=== PATIENT | female | born 1980 | race Caucasian/White ===

== ENCOUNTER → 2016-12-31 | Outpatient (REF) | payer OTHER | LOC: M LAB REF 12:31 | PROVIDERS: ATTEND Physician Assistant Medical | DX: J02.9 Acute pharyngitis, unspecified (principal) ==

== ENCOUNTER → 2017-03-09 | Outpatient (CLI) | payer OTHER ==
[2017-03-09 19:56] LABS: FOLATE 4.8 NG/ML; VITAMIN B12 LEVEL 418 PG/ML
[2017-03-09 19:59] LABS: DIFF SLIDE NUMBER 275; MEAN CORPUSCULAR HEMOGLOBIN 29.9 pg (27.0-33.0); MEAN CORPUSCULAR HGB CONC 31.9 g/dl (32.0-36.5); MEAN CORPUSCULAR VOLUME 93.7 fl (80.0-96.0); PLATELET COUNT, AUTOMATED 208 k/mm3 (150-450); RED CELL DISTRIBUTION WIDTH 12.2 % (11.5-14.5); WHITE BLOOD COUNT 11.3 K/mm3 (4.0-10.0)
[2017-03-09 20:22] LABS: ALBUMIN 3.3 GM/DL (3.2-5.2); ALBUMIN/GLOBULIN RATIO 0.83 (1.00-1.93); ALKALINE PHOSPHATASE 51 U/L (45-117); ALT/SGPT 72 U/L (12-78); ANION GAP 5 MEQ/L (8-16); AST/SGOT 64 U/L (15-37); BILIRUBIN,TOTAL 0.4 MG/DL (0.2-1.0); BLOOD UREA NITROGEN 11 MG/DL (7-18); CALCIUM LEVEL 8.4 MG/DL (8.5-10.1); CARBON DIOXIDE LEVEL 25 MEQ/L (21-32); CHLORIDE LEVEL 108 MEQ/L (98-107); CHOLESTEROL LEVEL 188 MG/DL (<200); CREATININE FOR GFR 0.86 MG/DL (0.55-1.02); GLOMERULAR FILTRATION RATE > 60.0 (>60); GLUCOSE, FASTING 81 MG/DL (70-105); POTASSIUM SERUM 4.5 MEQ/L (3.5-5.1); SODIUM LEVEL 138 MEQ/L (136-145); TOTAL PROTEIN 7.3 GM/DL (6.4-8.2); TRIGLYCERIDES LEVEL 131 MG/DL (<150)
[2017-03-09 20:48] LABS: BASOPHILS 2 % (0-4); EOSINOPHILS 1 % (0-5)
[2017-03-09 20:50] LABS: CRENATED RBC 2+
[2017-03-10 09:06] LABS: CONTROL LINE MONO INT CTR LINE PRESENT
== END ==
LOC: M ADAMS 12:00
PROVIDERS: ATTEND Emergency Medicine
DX: R53.83 Other fatigue (principal); J30.9 Allergic rhinitis, unspecified

== ENCOUNTER → 2017-03-09 | Outpatient (REF) | payer OTHER | LOC: M LAB REF 18:53 | PROVIDERS: ATTEND Physician Assistant | DX: J02.9 Acute pharyngitis, unspecified (principal) ==

== ENCOUNTER → 2017-08-18 | Outpatient (REF) | payer OTHER | LOC: M LAB REF 18:30 | PROVIDERS: ATTEND Physician Assistant Medical | DX: J02.9 Acute pharyngitis, unspecified (principal) ==

== ENCOUNTER → 2019-11-16 | Outpatient (CLI) | payer OTHER ==
--- NOTE | 2019-11-16 20:06 | REP ---
Right foot series: Four views. History: Pain in the right foot. Findings: Four views of the right foot demonstrate mild Achilles calcaneal spurring. Overall mineralization pattern is normal. No acute bony abnormality is seen. No erosive changes seen. Impression: Mild Achilles calcaneal spurring. No acute bony abnormality. Electronically Signed by Eros Izquierdo MD 11/17/2019 08:56 A
== END ==
LOC: M ADAMS 15:21
PROVIDERS: ATTEND Physician Assistant
DX: M79.671 Pain in right foot (principal)

== ENCOUNTER → 2020-01-19 | Outpatient (CLI) | payer OTHER ==
--- NOTE | 2020-01-20 02:28 | REP ---
Clinical: Menorrhagia. Technique: Transabdominal pelvic ultrasound followed by transvaginal examination for better evaluation of the endometrium and adnexa with color evaluation. Findings: Bladder is under distended but grossly normal in appearance. Heterogeneous anteverted uterus measures 8.7 x 5.0 x 5.7 cm. Endometrial complex measures 11 mm thickness. No discrete uterine or endometrial abnormalities appreciated. The bilateral ovaries demonstrate normal parenchymal vascularity without evidence for torsion. Right ovary appears normal and measures 2.1 x 1.5 x 1.2 cm. Left ovary measures 4.1 x 2.0 x 2.1 cm and includes 1.6 x 1.3 x 1.5 cm cyst and 1.8 x 1.7 x 1.6 cm cyst. Trace pelvic fluid is likely physiologic. No pelvic mass lesion identified. Impression: 1. Normal uterus and right ovary. 2. Left ovary includes two cystic structures suggesting physiologic cyst and involuting follicle. Consider reevaluation in 4-6 weeks to evaluate for resolution.
== END ==
LOC: M WHC 07:57
PROVIDERS: ATTEND Nurse Practitioner Women's Health
DX: N92.0 Excessive and frequent menstruation with regular cycle (principal)

== ENCOUNTER → 2020-02-10 | Outpatient (REF) | payer OTHER | LOC: M SFHCWAGY 17:39 | PROVIDERS: ATTEND Nurse Practitioner Women's Health | DX: Z12.4 Encounter for screening for malignant neoplasm of cervix (principal) ==

== ENCOUNTER → 2020-03-06 | Outpatient (REF) | payer OTHER ==
[2020-03-06 13:39] LABS: ALBUMIN 3.3 GM/DL (3.2-5.2); ALT/SGPT 37 U/L (12-78); BILIRUBIN,TOTAL 0.3 MG/DL (0.2-1.0); BLOOD UREA NITROGEN 8 MG/DL (7-18); CALCIUM LEVEL 8.7 MG/DL (8.5-10.1); CARBON DIOXIDE LEVEL 29 MEQ/L (21-32); CHLORIDE LEVEL 105 MEQ/L (98-107); CHOLESTEROL LEVEL 162 MG/DL (<200); CHOLESTEROL RISK RATIO 2.842 (<5); CREATININE FOR GFR 0.69 MG/DL (0.55-1.30); GLOMERULAR FILTRATION RATE > 60.0 (>60); GLUCOSE, FASTING 92 MG/DL (70-100); HDL CHOLESTEROL 57 MG/DL (>40); LDL CHOLESTEROL 75 MG/DL (<100); NON-HDL-C 105 MG/DL; SODIUM LEVEL 140 MEQ/L (136-145); TOTAL PROTEIN 6.2 GM/DL (6.4-8.2); TRIGLYCERIDES LEVEL 149 MG/DL (<150)
[2020-03-06 13:41] LABS: BASO % 0.9 % (0.0-1.0); EOS # 0.2 10^3/uL (0.0-0.5); HEMATOCRIT 39.7 % (36.0-47.0); HEMOGLOBIN 13.2 g/dl (12.0-15.5); LYMPH # 1.9 10^3/uL (1.5-5.0); MEAN CORPUSCULAR HEMOGLOBIN 32.2 pg (27.0-33.0); MEAN CORPUSCULAR HGB CONC 33.2 g/dl (32.0-36.5); MEAN CORPUSCULAR VOLUME 96.8 fl (80.0-96.0); MONO # 0.4 10^3/uL (0.0-0.8); MONO % 8.4 % (0.0-5.0); NEUTROPHILS # 1.8 10^3/uL (1.5-8.5); NEUTROPHILS % 42.5 % (36.0-66.0); PLATELET COUNT, AUTOMATED 195 10^3/uL (150-450); WHITE BLOOD COUNT 4.3 10^3/uL (4.0-10.0)
== END ==
LOC: M SFHCADAM 09:10
PROVIDERS: ATTEND Physician Assistant Medical
DX: Z00.00 Encounter for general adult medical examination without abnormal findings (principal); Z13.220 Encounter for screening for lipoid disorders; Z13.0 Encounter for screening for diseases of the blood and blood-forming organs and certain disorders involving the immune mechanism

== ENCOUNTER → 2020-06-14 | Outpatient (CLI) | payer OTHER ==
--- NOTE | 2020-06-27 13:16 | REPMRS ---
Patient History The patient states she had a clinical breast exam in December 2019.Family history of breast cancer in maternal grandmother. Taking hormonal contraceptives for 2 months. 3D TOMOSYNTHESIS WAS PERFORMED. The Jordana Chatman lifetime risk for breast cancer is 13.9%. BAKARI BRIAN RoulaTony Digital Woman Screen Mammo: June 14, 2020 - Exam #: [id number] Bilateral CC and MLO view(s) were taken. Technologist: Lesia Pulliam, Technologist FINDINGS: The breast tissue is heterogeneously dense. This may lower the sensitivity of mammography. There has been no change in the appearance of the mammogram from the prior studies. There is a moderate amount of residual fibroglandular tissue which is fairly symmetric. There is no interval development of dominant mass, areas of architectural distortion, or clustered microcalcification typical of malignancy. Assessment: BI-RADS/ACR category 1 mammogram. Negative Mammogram. Recommendation Routine screening mammogram in 1 year (for women over age 40). This mammogram was interpreted with the aid of an FDA-approved computer-aided dectection system. Electronically Signed By: Carlton Izquierdo MD 06/27/20 [id number]
== END ==
LOC: M WHC 07:21
PROVIDERS: ATTEND Nurse Practitioner Women's Health
DX: Z12.31 Encounter for screening mammogram for malignant neoplasm of breast (principal); Z80.3 Family history of malignant neoplasm of breast

== ENCOUNTER → 2021-09-24 | Outpatient (REF) | payer OTHER | LOC: M SFHCWAGY 17:14 | PROVIDERS: ATTEND Nurse Practitioner Women's Health | DX: Z12.4 Encounter for screening for malignant neoplasm of cervix (principal) | CPT/HCPCS: 87624; G0123 ==

== ENCOUNTER → 2021-09-24 | Outpatient (CLI) | payer OTHER ==
--- NOTE | 2021-09-24 12:40 | REPMRS ---
Patient History The patient states she had a clinical breast exam in 2021. Family history of breast cancer at age 50 in maternal grandmother. Taking hormonal contraceptives for 2 years 2 months. Tomosynthesis is performed. Volpara breast density is c. Tyrer-Cuzick lifetime risk of breast cancer 13.9%. No breast complaints today Patient signed the MRS sheet 1st vaccine 10/1205-[id number] arm 2nd vaccine 11/08-right arm Priors on PACS Patient Identification Verified Patient denied Digital Woman Screen Mammo: September 24, 2021 - Exam #: [id number] Bilateral CC and MLO view(s) were taken. Technologist: Danette Washington, Technologist Prior study comparison: June 14, 2020, bilateral digital woman screen mammo performed at [facility]. FINDINGS: The breast tissue is heterogeneously dense. This may lower the sensitivity of mammography. There has been no change in the appearance of the mammogram from the prior studies. There is a moderate amount of residual fibroglandular tissue which is fairly symmetric. There is no interval development of dominant mass, areas of architectural distortion, or clustered microcalcification typical of malignancy. Assessment: BI-RADS/ACR category 1 mammogram. Negative Mammogram. Recommendation Routine screening mammogram in 1 year (for women over age 40). This mammogram was interpreted with the aid of an FDA-approved computer-aided dectection system. Electronically Signed By: Cj Brown MD 09/24/21 [id number]
== END ==
LOC: M WHC 11:08
PROVIDERS: ATTEND Nurse Practitioner Women's Health
DX: Z12.31 Encounter for screening mammogram for malignant neoplasm of breast (principal)

== ENCOUNTER → 2022-12-11 | Outpatient (REF) | payer OTHER ==
[2022-12-11 17:22] LABS: C REACTIVE PROTEIN QUANTITATIV < 0.40 MG/DL (<1.0)
[2022-12-11 17:23] LABS: RHEUMATOID FACTOR QUANT 3.8 IU/ML (<14)
[2022-12-12 10:22] LABS: DRVV SCREEN 36.7 SEC
[2022-12-13 21:09] LABS: ANA (HEP2) Negative (.); CYCLIC CITRULLINATED PEPTIDE 2 units (0-19)
== END ==
LOC: M SFHCADAM 14:38
PROVIDERS: ATTEND Physician Assistant Medical
DX: M79.641 Pain in right hand (principal); M15.1 Heberden's nodes (with arthropathy)

== ENCOUNTER → 2023-03-05 | Outpatient (REF) | payer OTHER | LOC: M PLALAB 15:20 | PROVIDERS: ATTEND Nurse Practitioner Family | DX: Z12.4 Encounter for screening for malignant neoplasm of cervix (principal); R87.610 Atypical squamous cells of undetermined significance on cytologic smear of cervix (ASC-US) | CPT/HCPCS: 87624; G0123 ==

== ENCOUNTER → 2023-03-05 | Outpatient (CLI) | payer OTHER | LOC: M WHC 14:40 | PROVIDERS: ATTEND Nurse Practitioner Family | DX: Z12.31 Encounter for screening mammogram for malignant neoplasm of breast (principal); Z80.3 Family history of malignant neoplasm of breast ==

== ENCOUNTER → 2023-04-06 | Outpatient (REF) | payer OTHER ==
[2023-04-06 18:45] LABS: BASO # 0.1 10^3/uL (0.0-0.2); BASO % 0.9 % (0.0-1.0); EOS # 0.2 10^3/uL (0.0-0.5); EOS % 3.2 % (0.0-3.0); HEMATOCRIT 42.1 % (36.0-47.0); HEMOGLOBIN 13.5 g/dl (12.0-15.5); LYMPH # 2.2 10^3/uL (1.5-5.0); LYMPH % 32.3 % (24.0-44.0); MEAN CORPUSCULAR HEMOGLOBIN 31.9 pg (27.0-33.0); MEAN CORPUSCULAR HGB CONC 32.1 g/dl (32.0-36.5); MEAN CORPUSCULAR VOLUME 99.5 fl (80.0-96.0); MONO # 0.4 10^3/uL (0.0-0.8); MONO % 6.3 % (2.0-8.0); PLATELET COUNT, AUTOMATED 227 10^3/uL (150-450); RED BLOOD COUNT 4.23 10^6/uL (4.00-5.40); WHITE BLOOD COUNT 6.9 10^3/uL (4.0-10.0)
[2023-04-06 19:10] LABS: ALBUMIN 3.7 G/DL (3.2-5.2); ALKALINE PHOSPHATASE 12 U/L (46-116); ALT/SGPT 31 U/L (7.0-40); AST/SGOT 17 U/L (<34); BILIRUBIN,TOTAL 0.5 MG/DL (0.3-1.2); BLOOD UREA NITROGEN 14 MG/DL (9-23); CALCIUM LEVEL 9.3 MG/DL (8.5-10.1); CARBON DIOXIDE LEVEL 25 MMOL/L (20-31); CHLORIDE LEVEL 103 MMOL/L (98-107); CHOLESTEROL LEVEL 176 MG/DL (<200); CHOLESTEROL RISK RATIO 2.04 (<5); CREATININE FOR GFR 0.76 MG/DL (0.55-1.30); GLOMERULAR FILTRATION RATE > 60.0 (>58); GLUCOSE, FASTING 87 MG/DL (60-100); HDL CHOLESTEROL 85.9 MG/DL (>40); LDL CHOLESTEROL 61.9 MG/DL (<100); NON-HDL-C 90.1 MG/DL; POTASSIUM SERUM 4.4 MMOL/L (3.5-5.1); SODIUM LEVEL 138 MMOL/L (136-145); THYROID STIMULATING HORMONE 2.647 uIU/ML (0.55-4.78); TOTAL 25(OH) VITAMIN D 43.7 NG/ML (20.0-100.0); TOTAL PROTEIN 6.5 G/DL (5.7-8.2); TRIGLYCERIDES LEVEL 141 MG/DL (<150)
[2023-04-06 19:12] LABS: FREE T4 0.85 NG/DL (0.89-1.76)
== END ==
LOC: M SFHCADAM 09:32
PROVIDERS: ATTEND Physician Assistant Medical
DX: Z00.00 Encounter for general adult medical examination without abnormal findings (principal); E66.01 Morbid (severe) obesity due to excess calories; J45.20 Mild intermittent asthma, uncomplicated; F32.1 Major depressive disorder, single episode, moderate; F41.1 Generalized anxiety disorder

== ENCOUNTER → 2024-03-07 | Outpatient (CLI) | payer OTHER | LOC: M WHC 14:38 | PROVIDERS: ATTEND Nurse Practitioner Family | DX: Z12.31 Encounter for screening mammogram for malignant neoplasm of breast (principal) ==

== ENCOUNTER → 2024-03-22 | Outpatient (CLI) | payer OTHER | LOC: M WHC 11:03 | PROVIDERS: ATTEND Nurse Practitioner Family | DX: N60.12 Diffuse cystic mastopathy of left breast (principal); R92.332 Mammographic heterogeneous density, left breast | CPT/HCPCS: 76642; 77065; G0279 ==

== ENCOUNTER 2024-06-01 12:17 | Emergency (ER) | payer OTHER ==
[~2024-06-01] VITALS: Ht 154.9 cm; Wt 85.9 kg
[2024-06-01] MEDS: METOCLOPRAMIDE INJ 10MG/2ML VIAL IV ONE (12:59)
[2024-06-01] MEDS: FAMOTIDINE 20MG/2ML VIAL IVP ONE (12:59)
[2024-06-01] MEDS: PANTOPRAZOLE 40MG VIAL IV ONE (13:00)
[2024-06-01 13:15] LABS: BASO % 0.3 % (0.0-1.0); HEMATOCRIT 38.4 % (36.0-47.0); HEMOGLOBIN 13.7 g/dl (12.0-15.5); LYMPH # 0.8 10^3/uL (1.5-5.0); LYMPH % 7.1 % (24.0-44.0); MEAN CORPUSCULAR HEMOGLOBIN 32.7 pg (27.0-33.0); MEAN CORPUSCULAR HGB CONC 35.7 g/dl (32.0-36.5); MEAN CORPUSCULAR VOLUME 91.6 fl (80.0-96.0); MONO # 0.3 10^3/uL (0.0-0.8); MONO % 2.5 % (2.0-8.0); NEUTROPHILS # 9.7 10^3/uL (1.5-8.5); NEUTROPHILS % 89.9 % (36.0-66.0); PLATELET COUNT, AUTOMATED 229 10^3/uL (150-450); RED BLOOD COUNT 4.19 10^6/uL (4.00-5.40); WHITE BLOOD COUNT 10.7 10^3/uL (4.0-10.0)
[2024-06-01 13:39] LABS: CK-MB VALUE MASS < 1.0 NG/ML (<3.6)
[2024-06-01 13:41] LABS: LIPASE 26 U/L (12-53)
[2024-06-01 13:42] LABS: CPK CREATINE PHOSPHOKINASE 109 U/L (34-145); MB/CK RELATIVE INDEX 0.91 (< OR =4)
[2024-06-01 13:43] LABS: ALKALINE PHOSPHATASE 17 U/L (46-116); ALT/SGPT 22 U/L (7.0-40); AST/SGOT 16 U/L (<34); BILIRUBIN,DIRECT 0.2 MG/DL (<0.4); BILIRUBIN,TOTAL 0.6 MG/DL (0.3-1.2); BLOOD UREA NITROGEN 11 MG/DL (9-23); CALCIUM LEVEL 9.6 MG/DL (8.5-10.1); CARBON DIOXIDE LEVEL 17 MMOL/L (20-31); CHLORIDE LEVEL 106 MMOL/L (98-107); CREATININE FOR GFR 0.59 MG/DL (0.55-1.30); GLOMERULAR FILTRATION RATE > 60.0 (>58); GLUCOSE, FASTING 168 MG/DL (60-100); POTASSIUM SERUM 3.4 MMOL/L (3.5-5.1); SODIUM LEVEL 137 MMOL/L (136-145); TOTAL PROTEIN 6.7 G/DL (5.7-8.2)
[2024-06-01] MEDS: LIDOCAINE VISCOUS 2% SOLN 15ML UDC PO ONE (13:51)
[2024-06-01] MEDS: SUCRALFATE SUSP 1GM/10ML UD PO ONE (13:51)
[2024-06-01] MEDS: MAALOX 30 ML SUSP *UDC PO ONE (13:51)
[2024-06-01 14:32] LABS: CK-MB VALUE MASS < 1.0 NG/ML (<3.6); CPK CREATINE PHOSPHOKINASE 113 U/L (34-145); MB/CK RELATIVE INDEX 0.88 (< OR =4)
[2024-06-01 14:46] VITALS: TEMP 97.2; O2SAT 99
[2024-06-01 15:01] VITALS: BP 112/59
[2024-06-01] MEDS: KETOROLAC 30 MG/ML 1ML VIAL IV ONE (15:03)
[2024-06-01] MEDS ORDERED: ONDA-282 PO (15:19)
[2024-06-01] MEDS ORDERED: DICY-61 PO (15:19)
[2024-06-01] MEDS ORDERED: CARA1TAB6 PO (15:19)
[2024-06-01] MEDS ORDERED: PROT1TAB2 PO (15:19)
== END 2024-06-01 15:43 | disposition home or self-care (01) ==
LOC: EDBD 12:17 → M ED 12:17
DX: K21.00 Gastro-esophageal reflux disease with esophagitis, without bleeding (principal); I45.10 Unspecified right bundle-branch block; J45.909 Unspecified asthma, uncomplicated; F32.A Depression, unspecified; F17.210 Nicotine dependence, cigarettes, uncomplicated; Z79.899 Other long term (current) drug therapy
CPT/HCPCS: 74021; 80048; 80076; 82550; 82553; 83690; 84484; 85025; 93005; 93041; 96374; 96375; 99285; J1885; J2470; J2765; S0028

== ENCOUNTER 2024-07-11 11:55 | Observation (INO) | payer OTHER ==
[~2024-07-11] VITALS: Ht 157.5 cm; Wt 83.6 kg
[2024-07-11] VITALS (7 sets, daily range): BP systolic 122–139; BP diastolic 75–83; TEMP 97.1–98.5; O2SAT 95–97
[~2024-07-11 11:55] MED LIST: ALBU2.5V10 INH; CARA1TAB6 PO; DICY-61 PO; IBUP200C29 PO; LEXA1TAB PO; MONT10TA97 PO; ONDA-282 PO; PANT40TA29 PO; PROT1TAB2 PO; THERTAB52 PO; VENTAER INH
[2024-07-11] MEDS ORDERED: LR 1,000 ML IV SCH (12:15)
[2024-07-11 12:57] LABS: HEMATOCRIT 41.9 % (36.0-47.0); HEMOGLOBIN 14.5 g/dl (12.0-15.5); MEAN CORPUSCULAR HEMOGLOBIN 33.2 pg (27.0-33.0); MEAN CORPUSCULAR HGB CONC 34.6 g/dl (32.0-36.5); MEAN CORPUSCULAR VOLUME 95.9 fl (80.0-96.0); PLATELET COUNT, AUTOMATED 209 10^3/uL (150-450); RED BLOOD COUNT 4.37 10^6/uL (4.00-5.40); WHITE BLOOD COUNT 7.2 10^3/uL (4.0-10.0)
[2024-07-11] MEDS ORDERED: ONDANSETRON 4MG 2ML VIAL As Ordered ONE (13:43)
[2024-07-11] MEDS ORDERED: fentaNYL 100 MCG/2 ML INJECTION As Ordered ONE (13:43)
[2024-07-11] MEDS ORDERED: LIDOCAINE 2% 100MG/5ML SDV (FOR ANES.) As Ordered ONE (13:43)
[2024-07-11] MEDS ORDERED: propofoL 200 MG/20 ML VIAL As Ordered ONE (13:43)
[2024-07-11] MEDS ORDERED: MIDAZOLAM INJ 2MG/2ML VIAL As Ordered ONE (13:43)
[2024-07-11] MEDS ORDERED: ROCURONIUM BROMIDE 50MG/5ML VIAL As Ordered ONE (13:43)
[2024-07-11] MEDS ORDERED: SUGAMMADEX SODIUM 500 MG/5 ML VIAL (BRIDION) As Ordered ONE (13:46)
[2024-07-11] MEDS ORDERED: KETOROLAC 60MG 2ML VIAL As Ordered ONE (13:46)
[2024-07-11] MEDS ORDERED: ACETAMINOPHEN 1000MG 100ML IV BAG As Ordered ONE (13:48)
[2024-07-11] MEDS: ceFAZolin SOD 2 GM in IV 1 EA IV ONE (14:28)
[2024-07-11] MEDS ORDERED: IBUP-1022 PO (14:38)
[2024-07-11] MEDS ORDERED: OXYC1TAB23 PO (14:38)
[2024-07-11] MEDS ORDERED: HYDROmorphone HCL 2MG/ML 1ML VIAL As Ordered ONE (15:07)
[2024-07-11] MEDS ORDERED: LABETALOL 100MG/20ML VIAL As Ordered ONE (15:18)
[2024-07-11] MEDS ORDERED: hydrALAZINE 20MG/ML 1ML VIAL As Ordered ONE (15:33)
[2024-07-11] MEDS ORDERED: fentaNYL 100 MCG/2 ML INJECTION IV PRN (16:30)
[2024-07-11] MEDS: oxyCODONE 5MG TAB PO PRN (17:00)
[2024-07-11] MEDS: MORPHINE 2 MG/ML 1ML VIAL IV PRN (17:00)
[2024-07-11] MEDS: ONDANSETRON 4MG 2ML VIAL IV PRN (17:00)
[2024-07-11] MEDS ORDERED: PERCOCET 5MG/325MG TAB PO PRN (17:05)
[2024-07-11] MEDS ORDERED: ONDANSETRON 4MG 2ML VIAL IV PRN (17:05)
[2024-07-11] MEDS: METOCLOPRAMIDE INJ 10MG/2ML VIAL IV ONE (17:22)
[2024-07-11] MEDS: LR 1,000 ML IV SCH (19:08)
[2024-07-11] MEDS: DOCUSATE SODIUM 100MG CAPSULE PO SCH (22:35)
[2024-07-11] MEDS: KETOROLAC 30 MG/ML 1ML VIAL IV PRN (22:37)
[2024-07-12 04:00] VITALS: BP 140/88; TEMP 99.3; O2SAT 97
[2024-07-12 06:40] LABS: BASO % 0.1 % (0.0-1.0); HEMATOCRIT 35.4 % (36.0-47.0); LYMPH # 1.3 10^3/uL (1.5-5.0); LYMPH % 9.6 % (24.0-44.0); MEAN CORPUSCULAR HEMOGLOBIN 32.9 pg (27.0-33.0); MEAN CORPUSCULAR HGB CONC 34.5 g/dl (32.0-36.5); MEAN CORPUSCULAR VOLUME 95.4 fl (80.0-96.0); MONO # 1.1 10^3/uL (0.0-0.8); MONO % 7.7 % (2.0-8.0); NEUTROPHILS # 11.1 10^3/uL (1.5-8.5); NEUTROPHILS % 82.2 % (36.0-66.0); PLATELET COUNT, AUTOMATED 196 10^3/uL (150-450); RED BLOOD COUNT 3.71 10^6/uL (4.00-5.40); WHITE BLOOD COUNT 13.6 10^3/uL (4.0-10.0)
[2024-07-12 06:41] LABS: HEMOGLOBIN 12.2 g/dl (12.0-15.5)
[2024-07-12 08:00] VITALS: BP 138/64; TEMP 100.7; O2SAT 97
[2024-07-12] MEDS: ACETAMINOPHEN 500 MG TAB PO PRN (08:10)
== END 2024-07-12 10:50 | disposition home or self-care (01) ==
LOC: M SDC 11:55 → M PED 11:56
PROVIDERS: ADMIT Specialist; ATTEND Specialist
DX: D25.2 Subserosal leiomyoma of uterus (principal); D25.1 Intramural leiomyoma of uterus; N88.8 Other specified noninflammatory disorders of cervix uteri; N84.1 Polyp of cervix uteri; N83.12 Corpus luteum cyst of left ovary; R11.0 Nausea; N73.6 Female pelvic peritoneal adhesions (postinfective); N92.0 Excessive and frequent menstruation with regular cycle; Z79.899 Other long term (current) drug therapy; F17.210 Nicotine dependence, cigarettes, uncomplicated
CPT/HCPCS: 36415; 58571; 81025; 85025; 85027; 86850; 86900; 86901; 88307; 96361; 96374; 96376; J0131; J0360; J0665; J0690; J1100; J1171; J1885; J1920; J2250; J2405; J2765; J3010; S2900

== ENCOUNTER → 2024-08-03 | Outpatient (REF) | payer OTHER ==
[~2024-08-03] MED LIST changes: +IBUP-1022 PO; +OXYC1TAB23 PO
[2024-08-03 14:59] LABS: ESTRADIOL < 19.0 PG/ML; LUTEINIZING HORMONE 91.8 mIU/ML
== END ==
LOC: M LABDRWAD 13:52
PROVIDERS: ATTEND Specialist
DX: N95.9 Unspecified menopausal and perimenopausal disorder (principal)

== ENCOUNTER → 2024-09-19 | Outpatient (CLI) | payer OTHER | LOC: M WHC 15:06 | PROVIDERS: ATTEND Nurse Practitioner Family | DX: R92.8 Other abnormal and inconclusive findings on diagnostic imaging of breast (principal); R92.333 Mammographic heterogeneous density, bilateral breasts | CPT/HCPCS: 77065; G0279 ==